=== PATIENT | female | born 1975 | race Caucasian/White ===

== ENCOUNTER 2016-09-07 14:58 | Emergency (ER) | payer MEDICAID ==
[~2016-09-07] VITALS: Ht 175.3 cm; Wt 76.4 kg
[~2016-09-07 14:58] MED LIST: ZOFR4TAB3 SL; ZOLO25TA PO
[2016-09-07 15:04] VITALS: BP 127/68; PULSE 92; RESP 12; TEMP 98.3; O2SAT 97
[2016-09-07 16:16] LABS: BLOOD, URINE SMALL (NEG); COMMENT (UR) CULTURE INDICATED; CULTURE IF INDICATED CULTURE INDICATED; GLUCOSE,URINE NEG (NEG); KETONE, URINE NEG (NEG); NITRITE,URINE NEG (NEG); PH, URINE 6.5 (5.0-8.5); SQUAMOUS EPITHELIAL CELL URINE 4 /hpf (0-5); URINE COLOR YELLOW (YELLW/STRAW)
[2016-09-08] MEDS ORDERED: ZOLO25TA PO (16:38)
[2016-09-08] MEDS ORDERED: MACR100C2 PO (16:44)
== END 2016-09-07 21:45 | disposition left against medical advice (07) ==
LOC: NED 14:58
DX: Z53.21 Procedure and treatment not carried out due to patient leaving prior to being seen by health care provider (principal); B96.1 Klebsiella pneumoniae [K. pneumoniae] as the cause of diseases classified elsewhere
CPT/HCPCS: 81001; 87077; 87086; 87186; 99281

== ENCOUNTER 2016-09-08 15:38 | Emergency (ER) | payer MEDICAID, OTHER ==
[~2016-09-08] VITALS: Ht 176.5 cm; Wt 80.2 kg
[2016-09-08 16:04] VITALS: BP 112/80; PULSE 70; RESP 16; TEMP 98.1; O2SAT 99
[2016-09-08 16:16] LABS: BLOOD, URINE SMALL (NEG); GLUCOSE,URINE NEG (NEG); KETONE, URINE NEG (NEG); NITRITE,URINE NEG (NEG); PH, URINE 6.5 (5.0-8.5)
[2016-09-08 16:25] LABS: METHOD OF COLLECTION CLEAN CATCH
[2016-09-08 16:26] LABS: URINE COLOR YELLOW (YELLW/STRAW)
[2016-09-08 16:27] LABS: BACTERIA, URINE FEW /hpf; COMMENT (UR) CULTURE INDICATED; CULTURE IF INDICATED CULTURE INDICATED; SQUAMOUS EPITHELIAL CELL URINE > 8 /hpf (0-5)
[2016-09-08] MEDS ORDERED: ZOLO25TA PO (16:38)
[2016-09-08] MEDS ORDERED: MACR100C2 PO (16:44)
--- NOTE | 2016-09-08 16:45 | PD ---
HPI Chief Complaint: Flank/Kidney Pain Time Seen by Provider: 16:34 Travel History International Travel<30 days: No Contact w/Intl Traveler<30days: No Traveled to known affect area: No History of Present Illness HPI This 41-year-old female is complaining of burning with urination. Symptoms started on Wednesday. They've been fairly persistent. She has had some chills. She is not aware of fever. She is having some back pain. There has been no vomiting. She has no history of high blood pressure diabetes. She is allergic to penicillin. He has had some sinus congestion. She took some Azo without much response. She has had some congestion in her sinuses PFSH Past Medical History Anxiety: Yes Cardiovascular Problems: Yes (STATES IRREGULAR HEART BEAT, PALPITATIONS) Diminished Hearing: No Musculoskeletal: Yes (SCOLIOSIS) Immunizations Current: No (STATES HAS NEVER HAD VACCINATIONS IN LIFETIME) Tetanus Vaccination: Unknown ?: Not LMP: 3 weeks ago : 1 Para: 1 Past Surgical History Section: Yes (X 1) Eye Surgery: Yes (lead removed from eye) Social History Alcohol Use: Yes Tobacco Use: No Substance Use: No Allergies-Medications (Allergen,Severity, Reaction): Coded Allergies: Amoxicillin (Verified Allergy, Severe, HIVES, 09/08/16) Penicillin (Verified Allergy, Severe, HIVES, SOB, 09/08/16) Reported Meds & Prescriptions Reported Meds & Active Scripts Active Reported Zoloft (Sertraline HCl) 25 Mg Tab 25 Mg PO DAILY Review of Systems General / Constitutional: Positive: Chills, No: Fever Eyes: No: Diploplia, Blurred Vision HENT: Positive: Rhinitis, No: Headaches Cardiovascular: No: Chest Pain or Discomfort, Palpitations Respiratory: No: Cough, Shortness of Breath Gastrointestinal: No: Vomiting, Diarrhea Genitourinary: Positive: Frequency, Dysuria, Flank Pain Musculoskeletal: No: Myalgias Skin: No Rash, No Itching Neurologic: Positive: Weakness Psychiatric: No: Anxiety Endocrine: No: Heat Intolerance Hematologic/Lymphatic: No: Easy Bruising Physical Exam Narrative GENERAL: Well-developed female SKIN: Warm and dry. HEAD: Atraumatic. Normocephalic. EYES: Pupils equal and round. No scleral icterus. No injection or drainage. ENT: No nasal bleeding or discharge. Mucous membranes pink and moist. There is swelling and tenderness NECK: Trachea midline. No JVD. CARDIOVASCULAR: Regular rate and rhythm. No murmur appreciated. RESPIRATORY: No accessory muscle use. Clear to auscultation. Breath sounds equal bilaterally. GASTROINTESTINAL: Abdomen soft, non-tender, nondistended. Hepatic and splenic margins not palpable. No CVA tenderness. There is some chest discomfort MUSCULOSKELETAL: No obvious deformities. No clubbing. No cyanosis. No edema. NEUROLOGICAL: Awake and alert. No obvious cranial nerve deficits. Motor grossly within normal limits. Normal speech. PSYCHIATRIC: Appropriate mood and affect; insight and judgment normal. Data Data Last Documented VS Vital Signs Date Time Temp Pulse Resp B/P Pulse Ox O2 Delivery O2 Flow Rate FiO2 09/08/16 16:31 16 09/08/16 16:04 98.1 70 112/80 99 Orders Urinalysis - C+S If Indicated (09/08/16 15:56) Ed Urine Pregnancytest Poc (09/08/16 16:09) Urine Culture (09/08/16 16:05) Labs Laboratory Tests Test 09/08/16 16:05 Urine Collection Type CLEAN CATCH Urine Color YELLOW Urine Turbidity CLEAR Urine pH 6.5 Urine Specific [place] 1.004 Urine Protein NEG mg/dL Urine Glucose (UA) NEG mg/dL Urine Ketones NEG mg/dL Urine Occult Blood SMALL Urine Nitrite NEG Urine Bilirubin NEG Urine Leukocyte Esterase TRACE Urine WBC 9-14 /hpf Urine Squamous Epithelial > 8 /hpf Cells Urine Bacteria FEW /hpf Microscopic Urinalysis Comment CULTURE INDICATED Urine Collection Time 16:00 [facility] Medical Decision Making Medical Screen Exam Complete: Yes Emergency Medical Condition: Yes Medical Record Reviewed: Yes Interpretation(s) Laboratory Tests Test 09/08/16 16:05 Urine Collection Type CLEAN CATCH Urine Color YELLOW Urine Turbidity CLEAR Urine pH 6.5 Urine Specific [place] 1.004 Urine Protein NEG mg/dL Urine Glucose (UA) NEG mg/dL Urine Ketones NEG mg/dL Urine Occult Blood SMALL Urine Nitrite NEG Urine Bilirubin NEG Urine Leukocyte Esterase TRACE Urine WBC 9-14 /hpf Urine Squamous Epithelial > 8 /hpf Cells Urine Bacteria FEW /hpf Microscopic Urinalysis Comment CULTURE INDICATED Urine Collection Time 16:00 Differential Diagnosis Differential includes UTI, dysuria, Narrative Course Impression is urinary tract infection. She'll be treated with Macrodantin Diagnosis Primary Impression: Urinary tract infection Qualified Code: N30.00 - Acute cystitis without hematuria Scripts Nitrofurantoin Monohydrate Macrocrystals (Macrobid)100 Mg [id number] Mg PO BID 7 Days Ref 0 Prov:Jake Hand MD 09/08/16 Disposition: 01 DISCHARGE HOME Condition: Stable Jake Hand MD Sep 08, 2016 16:45
== END 2016-09-08 16:51 | disposition home or self-care (01) ==
LOC: PHED 15:38
DX: N30.00 Acute cystitis without hematuria (principal); B96.1 Klebsiella pneumoniae [K. pneumoniae] as the cause of diseases classified elsewhere
CPT/HCPCS: 81001; 84703; 87077; 87086; 87186; 99283